=== PATIENT | male | born 1965 | race Caucasian/White ===

== ENCOUNTER 2023-12-25 10:49 | Emergency (ER) | payer SELFPAY ==
[2023-12-25 11:04] VITALS: BP 155/99; PULSE 105; RESP 20; TEMP 36.6; O2SAT 100
[2023-12-25] MEDS: predniSONE 20 MG TABLET 40 MG PO (12:26)
[2023-12-25] MEDS: traMADol HCL (*CRX) 25 MG TABLET PO (12:26)
--- NOTE | 2023-12-25 13:03 | ED.BACK ---
HPI - Back Pain/Injury General Chief Complaint: Back Pain/Injury Stated Complaint: back pain/gout pain Time Seen by Provider: 12/25/23 11:58 History of Present Illness HPI Narrative: Patient with history of gout, chronic back pain, presents here with 4 weeks now avoid he feels this is gout flare and back pain. He has been taking colchicine But it has not helped. Related Data Allergies Allergy/AdvReac Type Severity Reaction Status Date / Time No Known Allergies Allergy Verified 12/25/23 11:58 Review of Systems Review of Systems: CONST: No fever. HEENT: No sore throat C/V: No chest pain RESP: No cough GI: no abdominal pain : No dysuria. M/S: bilateral lower extremity joint pain, lower back pain SKIN: No rash. NEURO: [No headache or focal numbness or weakness] PSYCH: upset about being in pain Exam Narrative: EXAMINATION OF ORGAN SYSTEMS/BODY AREAS: Constitutional: Vital signs per nursing GENERAL:[No acute distress, non-toxic appearing.] HEAD: Normal with no signs of head trauma. EYES: EOMI, conjunctiva normal ENT: Hearing grossly intact LUNGS: Nonlabored breathing. HEART: [Regular rate and rhythm], normal DP pulses ABD: [Soft], [nontender to palpation] EXT: Normal painless range of motion with full flexion to hips, knees, ankles SKIN: [No rashes or lesions.] NEURO: [Alert and oriented x 3. No gross focal sensory or strength deficits.] PSYCH: Normal affect. denies any SI/HI to me Course Vital Signs Vital signs: Vital Signs Temperature 97.8 F 12/25/23 11:04 Pulse Rate 105 H 12/25/23 11:04 Respiratory Rate 20 12/25/23 11:04 Blood Pressure 155/99 H 12/25/23 11:04 Pulse Oximetry 100 12/25/23 11:04 Oxygen Delivery Room Air 12/25/23 11:04 Temperature 97.8 F 12/25/23 11:04 Pulse Rate 105 H 12/25/23 11:04 Respiratory Rate 20 12/25/23 11:04 Blood Pressure 155/99 H 12/25/23 11:04 Pulse Oximetry 100 12/25/23 11:04 Oxygen Delivery Room Air 12/25/23 11:04 MDM - Back Pain/Injury MDM Narrative Medical decision making narrative: ED COURSE AND MEDICAL DECISION MAKIN-year-old male with acute on chronic back & joint pain. Normal motor and sensory exam. Patient able to ambulate. No evidence of acute cord compression, osteomyelitis/discitis or cauda equina without saddle anesthesia, urinary retention/incontinence, numbness/tingling in lower extremities, fever, history of IV drug use, cancer or immunosuppression. Doubt AAA or aortic dissection without severe pain/discomfort or any neurovascular deficits.? 1 dose of tramadol given for symptomatic relief. On reevaluation, the symptoms are improved. Patient is able to rest more comfortably. Ambulating without difficulty. I will trial a course of steroids since he has already tried colchicine for the gout without relief. He had initially reported suicidality to the nurse, but to me he tells me that he just has so much pain that he cannot bear it but that he has no thoughts of hurting himself or anyone else. Patient is given return precautions and instructed to come back at any point in time for worsening pain, fevers, weakness, difficulty walking, urinary or fecal incontinence. Patient expressed understanding of instructions. Discharge Plan Discharge Clinical Impression: Gout, Chronic back pain Patient Disposition: Home, Self-Care Condition: Stable Instructions: Antibiotic Form, Gout (ED), Back Pain (ED) Additional Instructions: Please follow-up with the primary care doctor, you can always return to the ER for any further issues. Prescriptions: New prednisone 20 mg tablet 40 mg PO DAILY 5 Days Qty: 10 0RF acetaminophen [Tylenol Extra Strength] 500 mg tablet 1,000 mg PO Q6H PRN (Reason: pain) Qty: 50 0RF ibuprofen 600 mg tablet 600 mg PO TID PRN (Reason: fever or pain) Qty: 30 0RF Follow-up/Referrals: PHYSICIAN,DISPUTE RESOLUTION SPECIALIST [Primary Care Provider] - Peter Cunha MD [Physic
== END 2023-12-25 13:40 | disposition home or self-care (01) ==
PROVIDERS: Emergency Provider Emergency Medicine
DX: M10.9 Gout, unspecified (principal); G89.29 Other chronic pain; M54.50 Low back pain, unspecified
CPT/HCPCS: 99283; A9270; J7512